=== PATIENT | male | born 1950 ===

== ENCOUNTER 2018-09-16 13:31 | Outpatient (CLI) | payer BC ==
--- NOTE | 2018-09-16 15:48 | CT Report ---
Reason: PERSONAL HISTORY OF NICTOINE DEPENDENCE Procedure Date: 09/16/2018 Accession Number: [id number] / [id number] Procedure: CT - Low Dose Lung Cancer Screen CPT Code: FULL RESULT: EXAM CT LUNG SCREEN EXAM DATE: 09/16/2018 01:46 PM. HISTORY: [id number]-year-old patient with [id number]-[id number] smoking history. Currently smoking: Unknown. Unknown . COMPARISON: None. TECHNIQUE: CT examination of the entire thorax without contrast was performed using low-dose technique. Thin section coronal, axial, sagittal and MIP axial images were obtained. In accordance with CT protocol optimization, one or more of the following dose reduction techniques were utilized for this exam: automated exposure control, adjustment of mA and/or KV based on patient size, or use of iterative reconstructive technique. FINDINGS: Nodules: Right upper lobe: None. Right middle lobe: None. Note: No definite minor fissure noted. Right lower lobe: 2 mm pulmonary nodule image 111/series 4. Left upper lobe: None. Left lower lobe: 5 x 2 x 2 mm pleural-based nodule versus nodular thickening mid major fissure image 83 series 4 Emphysema: None. Pleura: As above Aorta: Unremarkable. Mediastinum: Unremarkable. Coronary calcifications: Significant three-vessel coronary artery calcium greatest in the left main, left anterior descending coronary artery and right coronary artery. Other pulmonary findings: None. Other extrapulmonary findings: Minimal gynecomastia. IMPRESSION: Lung-RADS ASSESSMENT CATEGORY: 2 - benign appearance or behavior. Probability of malignancy: Less than 1%. RECOMMENDATION: Recommended follow up based on Lung-RADS guidelines. [facility]
== END 2018-09-16 13:32 | disposition home or self-care (01) ==
LOC: DI 13:31
PROVIDERS: ATTEND Student in an Organized Health Care Education/Training Program
DX: Z12.2 Encounter for screening for malignant neoplasm of respiratory organs (principal); Z87.891 Personal history of nicotine dependence

== ENCOUNTER 2020-10-05 10:45 | Outpatient (CLI) | payer BC ==
--- NOTE | 2020-10-05 14:19 | CT Report ---
PROCEDURE: Low Dose Lung Cancer Screen INDICATIONS: PULMONARY NODULES TECHNIQUE: Noncontrast low-dose 5 mm thick sections acquired from the pulmonary apices to the posterior costophr enic angles. 7 mm thick coronal and sagittal MIP reformats were then acquired. For radiation dose r eduction, the following was used: automated exposure control, adjustment of mA and/or kV according t o patient size. COMPARISON: 09/06/2018 FINDINGS: Image quality: Excellent. Lungs and pleura: Probable fissural lymph node, major fissure of left lung, current image 163/4 and previous image 83/4, unchanged. Unchanged 1 mm pulmonary nodule, right lower lobe, previous image 111 /4 and current image 218/4. No new or increasing pulmonary nodules. Mediastinum: Heart size is normal. No pericardial effusion. Advanced coronary artery calcification s. No mediastinal adenopathy by size criteria. Thoracic aorta and central pulmonary arteries are nor mal in size. Esophagus is normal in caliber. No hiatal hernia. Bones and chest wall: No suspicious bony lesions. No vertebral body compression fractures. No axil miguel angel or supraclavicular adenopathy by size criteria. Thyroid is not well imaged utilizing this low-d ose technique. Abdomen: Visualized upper abdomen solid organs and bowel loops appear normal in the absence of contr ast. IMPRESSION: 1. LungRads category 1: Negative. No nodules and/or definitely benign nodules. 2. Annual low-dose noncontrast CT of the chest is recommended for lung cancer screening. 3. Clinically significant or potentially clinically significant findings (nonlung cancer): Advanced c oronary artery disease. Reviewed by: Giovanni Wetzel MD on 10/05/2020 2:18 PM PDT Approved by: Giovanni Wetzel MD on 10/05/2020 2:18 PM PDT Station ID: [id number]
== END 2020-10-05 10:46 | disposition home or self-care (01) ==
LOC: DI 10:45
PROVIDERS: ATTEND Student in an Organized Health Care Education/Training Program
DX: R91.8 Other nonspecific abnormal finding of lung field (principal); I25.10 Atherosclerotic heart disease of native coronary artery without angina pectoris